=== PATIENT | female | born 2005 | race Caucasian/White ===

== ENCOUNTER 2024-04-19 20:44 | Emergency (ER) | payer SELFPAY ==
[~2024-04-19] VITALS: Ht 157.5 cm; Wt 45.4 kg
[2024-04-19 21:35] VITALS: BP 104/74; PULSE 94; RESP 18; TEMP 98.2; O2SAT 99
[2024-04-19] MEDS ORDERED: NAPR-337 PO (23:51)
== END 2024-04-19 23:57 | disposition home or self-care (01) ==
LOC: MED 20:44
DX: S13.4XXA Sprain of ligaments of cervical spine, initial encounter (principal); S33.5XXA Sprain of ligaments of lumbar spine, initial encounter; Z79.899 Other long term (current) drug therapy; V89.2XXA Person injured in unspecified motor-vehicle accident, traffic, initial encounter; Y93.89 Activity, other specified; Y92.89 Other specified places as the place of occurrence of the external cause; Y99.8 Other external cause status
CPT/HCPCS: 72050; 72100; 81025; 99284